=== PATIENT | male | born 1965 | race Caucasian/White ===

== ENCOUNTER 2017-03-31 07:57 | Emergency (ER) | payer OTHER ==
[2017-03-31] MEDS ORDERED: Bismuth Subsalicylate 262 mg Chew Tab PO STA (08:36)
--- NOTE | 2017-03-31 08:55 | C.PDOC ---
History Of Present Illness Patient is a 51 y/o male presents to ED for evaluation of 3 episodes of watery diarrhea last night after eating unwashed fruit. Pt also complaints of sore throat since yesterday. Denies taking OTC pain medications. Pt denies abdominal pain, nausea, vomiting, urinary symptoms, cough, congestion, difficulty breathing, difficulty swallowing, fever, or chills. Time Seen by Provider: 03/31/17 08:10 Chief Complaint (Nursing): Abdominal Pain History Per: Patient History/Exam Limitations: no limitations Onset/Duration Of Symptoms: Days (1) Current Symptoms Are (Timing): Still Present Severity: None Pain Scale Rating Of: 0 Radiation Of Pain To:: None Associated Symptoms: Diarrhea. denies: Nausea, Vomiting, Loss Of Appetite, Back Pain, Chest Pain, Constipation, Urinary Symptoms Exacerbating Factors: None Alleviating Factors: None Recent travel outside of the [place]: No Additional History Per: Patient Past Medical History Reviewed: Historical Data, Nursing Documentation, Vital Signs Vital Signs: Last Vital Signs Temp 98.1 F 03/31/17 09:33 Pulse 70 03/31/17 09:33 Resp 18 03/31/17 09:33 BP 129/71 03/31/17 09:33 Pulse Ox 96 03/31/17 09:33 - Medical History PMH: Gastritis, Migraine Family History: States: Unknown Family Hx - Social History Hx Tobacco Use: No Hx Alcohol Use: No Hx Substance Use: No - Immunization History Hx Tetanus Toxoid Vaccination: No Hx Influenza Vaccination: No Hx Pneumococcal Vaccination: No Review Of Systems Except As Marked, All Systems Reviewed And Found Negative. Constitutional: Negative for: Fever, Chills ENT: Positive for: Throat Pain. Negative for: Ear Pain, Nose Discharge, Nose Congestion Cardiovascular: Negative for: Chest Pain Respiratory: Negative for: Cough, Shortness of Breath Gastrointestinal: Positive for: Diarrhea. Negative for: Nausea, Vomiting, Abdominal Pain, Constipation Genitourinary: Negative for: Dysuria, Frequency, Hematuria Musculoskeletal: Negative for: Back Pain Physical Exam - Physical Exam Appears: Non-toxic, No Acute Distress Skin: Normal Color, Warm, Dry, No Rash Head: Atraumatic, Normacephalic Eye(s): bilateral: Normal Inspection, EOMI Ear(s): Bilateral: Normal Nose: Normal Oral Mucosa: Moist Tongue: Normal Appearing Lips: Normal Appearing Throat: Normal, No Erythema, No Exudate, No Drooling Neck: Normal ROM, Supple Chest: Symmetrical Cardiovascular: Rhythm Regular Respiratory: Normal Breath Sounds, No Rales, No Rhonchi Gastrointestinal/Abdominal: Normal Exam, Soft, No Tenderness, No Guarding, No Rebound Back: No CVA Tenderness Extremity: Normal ROM, No Pedal Edema Neurological/Psych: Oriented x3, Normal Speech ED Course And Treatment O2 Sat by Pulse Oximetry: 97 (on RA) Pulse Ox Interpretation: Normal Progress Note: Patient was treated with Imodium. Rapid strep test ordered and reviewed. On re-eval, pt is resting comfortably, no acute distress. Pt reports feeling better. Abdomen remains soft and non-tender. Discussed symptoms are likely viral and symptomatic treatment. Pt is being discharged home with instructions to follow up with PMD in 1-2 days, or return to ED if symptoms worsen. Disposition - Disposition Referrals: [facility] [Outside] Disposition: HOME/ ROUTINE Disposition Time: 09:09 Condition: STABLE Additional Instructions: Julian un seguimiento con whitman mdico de cabecera en 1-2 myrick. Regresar a Urgencias si los sntomas persisten o empeoran. 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 - Scribe Statement The provider has reviewed the documentation as recorded by the Brendanibdalia Cunningham All medical record entries made by the Scribe were at my direction and personally dictated by me. I have reviewed the chart and agree that the record accurately reflects my personal performance of the history, physical exam, medical decision making, and the department course for this patient. I have also personally directed, reviewed, and agree with the discharge instructions and disposition.
[2017-03-31 09:35] VITALS: BP 129/71; PULSE 70; RESP 18; TEMP 98.1
[2017-03-31 12:21] VITALS: O2SAT 97
== END 2017-03-31 09:34 | disposition home or self-care (01) ==
LOC: C.ER 07:57
DX: R19.7 Diarrhea, unspecified (principal)